=== PATIENT | male | born 2000 | race Caucasian/White ===

== ENCOUNTER 2023-07-29 17:27 | Emergency (ER) | payer BC ==
[~2023-07-29] VITALS: Ht 175.3 cm; Wt 66.0 kg
[2023-07-29 17:37] VITALS: BP 132/74; O2SAT 99
[2023-07-29 20:18] VITALS: PULSE 85; RESP 18; TEMP 97.9
== END 2023-07-29 20:19 | disposition home or self-care (01) ==
LOC: ER 17:27
DX: S00.81XA Abrasion of other part of head, initial encounter (principal); S06.0X9A Concussion with loss of consciousness of unspecified duration, initial encounter; W18.30XA Fall on same level, unspecified, initial encounter; Y93.89 Activity, other specified; Y92.89 Other specified places as the place of occurrence of the external cause; Y99.8 Other external cause status
CPT/HCPCS: 70450; 99284; Z7610